=== PATIENT | female | born 1955 | race Caucasian/White ===

== ENCOUNTER 2018-08-08 09:23 | Outpatient (CLI) | payer BC ==
--- NOTE | 2018-08-08 10:44 | ULT ---
FHepatic Doppler ultrasound: 08/08/2018 COMPARISON: None HISTORY: Hepatic steatosis TECHNIQUE: Multiplanar grayscale sonographic imaging of the upper abdomen with Doppler assessment of the hepatic and splenic vasculature with color flow and spectral analysis FINDINGS: The aorta and IVC are patent and demonstrate appropriate waveforms. No focal liver lesion or intrahepatic biliary dilatation. Imaged portions of the pancreas appear unre markable. Main, left, and right portal vein patent with normal waveforms and flow direction. Hepatic artery dem onstrates a normal waveform. The common bile duct measures 6 mm, within normal limits. The patient is status post cholecystectomy. Left, right, and middle hepatic veins are patent and demonstrate appropriate waveforms. Spleen measures 9.8 cm, within normal limits. Splenic artery and vein are patent and demonstrate appr opriate waveforms. Right kidney measures 10.6 cm and demonstrates no evidence for stone, hydronephrosis, or mass lesion. IMPRESSION: Unremarkable hepatic Doppler ultrasound.
== END 2018-08-08 09:24 | disposition home or self-care (01) ==
LOC: BICULT 09:23
PROVIDERS: ATTEND Physician Assistant Medical
DX: K76.0 Fatty (change of) liver, not elsewhere classified (principal)
CPT/HCPCS: 36415; 76705; 80076

== ENCOUNTER 2019-10-12 14:29 | Outpatient (CLI) | payer BC ==
--- NOTE | 2019-10-12 16:28 | MMO ---
Right Breast MAMMO Unilat Diag DDI RT+[facility]LEY. CLINICAL HISTORY: Patient is 64 years old and is seen for additional evaluation requested at current screening. The patient has the following family history of breast cancer: maternal aunt, at age 53 and 2 paternal aunts. The patient has a history of malignant (generic) in the left breast at age 54. The patient has a history of left Lumpectomy at age 54. VIEWS: The views performed were: right craniocaudal spot compression magnification; right mediolateral spot compression magnification; and right mediolateral with tomosynthesis. FILMS COMPARED: The present examination has been compared to prior imaging studies performed at 10/12/2019, and at [facility] on 10/19/2016. This study has been interpreted with the assistance of computer-aided detection. MAMMOGRAM FINDINGS: The breast is heterogeneously dense, which could obscure a lesion on mammography. There is a nodule with associated calcifications seen in the right breast. IMPRESSION: NODULE IN THE RIGHT BREAST REQUIRES ADDITIONAL EVALUATION. AN ULTRASOUND EXAM IS RECOMMENDED. THE RESULTS OF THIS EXAM WERE SENT TO THE PATIENT. ACR BI-RADS Category 0 - Incomplete: Need additional imaging evaluation. [facility] will notify the patient of the need for additional imaging services. MAMMOGRAPHY NOTE: 1. A negative mammogram report should not delay a biopsy if a dominant of clinically suspicious mass is present. 2. Approximately 10% to 15% of breast cancers are not detected by mammography. 3. Adenosis and dense breasts may obscure an underlying neoplasm. Reported by: JAEL WAKEFIELD MD Electonically Signed: [id number]
--- NOTE | 2019-10-12 20:11 | ULT ---
RIGHT BREAST ULTRASOUND: History: Patient has a history of left breast cancer. A recent mammogram done in [place] on 10-08-2019 showed some calcifications in the upper inner left breast for which diagnostic mammogram was recommen ded. Subsequent diagnostic mammogram did show calcifications, but there is also a vague area of nodularity which seemed to be in the area of calcifications. FINDINGS: Real-time imaging of the right breast at the 1 o'clock position 2 cm from the nipple showed a hypoech oic lesion measuring 5 x 6 mm in size. This is felt to be in the region where the calcifications are, although on ultrasound I cannot definitively identify the calcifications. There is a small cyst for reference which is also in this area. IMPRESSION: BIRADS category 4 - suspicious abnormality. Biopsy is recommended. This is recommended as an ultrasou nd guided procedure. I feel that the nodule in question appears to be in the same location as the genevieve cifications which were noted on mammogram which also showed a vague area of nodularity in this area. I would recommend biopsy of this area with clip placement and we can determine if this nodule is rela moody to these calcifications or a separate abnormality. Findings were discussed with the patient and Huong Pace. If this lesion does bottom turner to be unrelated to the calcifications and is benign then I would recomme nd a minimum consideration of a 6 month follow up mammogram for the calcifications versus a stereotac tic biopsy. The difficulty with stereotactic biopsy is that these are very faint calcifications and m ay be very difficult to identify on stereo.
== END 2019-10-12 14:30 | disposition home or self-care (01) ==
LOC: BICMAMMO 14:29
PROVIDERS: ATTEND Internal Medicine Hematology & Oncology
DX: C50.512 Malignant neoplasm of lower-outer quadrant of left female breast (principal); R92.8 Other abnormal and inconclusive findings on diagnostic imaging of breast; N63.10 Unspecified lump in the right breast, unspecified quadrant
CPT/HCPCS: 77066; G0279

== ENCOUNTER → 2019-10-15 | Day surgery (SDC) | payer BC ==
--- NOTE | 2019-10-15 12:25 | ULT ---
ULTRASOUND GUIDED BIOPSY OF RIGHT BREAST: DATE: 10/15/2019. COMPARISON: Focused right breast ultrasound 10/12/2019. HISTORY: A 64-year-old female who underwent recent mammography demonstrating a new very subtle area of calcifi cation. At the time of mammography, a small nodule was noted immediately adjacent to the calcificati ons. On the ultrasound performed 10/12/2019 to evaluate the areas on mammography, a round lesion was n oted at the 1 o'clock position of the right breast and biopsy was recommended. FINDINGS: Informed consent for ultrasound-guided biopsy obtained prior to the procedure. During preprocedural planning, an area of persistent focal shadowing was noted at the 1 o'clock posit ion of the right breast approximately 3 cm from the nipple. In addition, the hypoechoic lesion noted on the 10/12/2019 examination is re-identified. Thus, 2 separate areas were sampled during this proce dure with ultrasound guidance. The superior aspect of the right breast was prepped and draped in normal sterile fashion. In the are a of persistent shadowing, the skin was anesthetized with 1% buffered Lidocaine. Three 14-gauge core biopsies were obtained through this lesion. Then, an S-shaped clip was placed in the area of biopsy . Subsequently, the round nodule was sampled with fine needle aspiration utilizing an 18-gauge spina l needle. Then, numerous 18-gauge core biopsies were obtained utilizing a Nicole needle. A round clip was placed within the 2nd lesion. The patient tolerated the procedure well. No postprocedural complications occurred. The post biopsy mammogram demonstrates the curved clip to be in close proximity with the calcificatio ns noted on the 10/12/2019 mammogram. The round clip associated with biopsy of the oval nodule noted o n the 10/12/2019 ultrasound is not in the area of calcification. IMPRESSION: Successful ultrasound-guided biopsy of 2 separate lesions in the 1 o'clock region of the right breast as detailed above. POS: REG
--- NOTE | 2019-10-16 08:20 | MMO ---
FILMS COMPARED: The present examination has been compared to prior imaging studies performed at on 10/12/2019. MAMMOGRAM FINDINGS: The breasts are heterogeneously dense, which could obscure a lesion on mammography. There are two biopsy clips seen in the right breast. In the left breast, there are no suspicious masses, calcifications or areas of architectural distortion. IMPRESSION: BIOPSY CLIPS IN THE RIGHT BREAST ARE CONFIRMED UTILIZING POST PROCEDURE MAMMOGRAM. Reported by: JAEL WAKEFIELD MD Electonically Signed: [id number]
== END ==
LOC: BICULT 07:33
PROVIDERS: ATTEND Internal Medicine Hematology & Oncology
PROC: 0H9T3ZX Drainage of Right Breast, Percutaneous Approach, Diagnostic (ICD-10-PCS; principal; 2019-10-15)
DX: C50.211 Malignant neoplasm of upper-inner quadrant of right female breast (principal); Z17.0 Estrogen receptor positive status [ER+]
CPT/HCPCS: 19083; 88305